=== PATIENT | female | born 1970 | race Caucasian/White ===

== ENCOUNTER 2020-09-13 21:59 | Inpatient (IN) | payer MEDICAID ==
[~2020-09-13] VITALS: Ht 160 cm; Wt 77.0 kg
[2020-09-13] MEDS ORDERED: KETOROLAC 30MG/ML VIAL IV STA (22:06)
[2020-09-13] MEDS ORDERED: ONDANSETRON HCL 4MG/2ML INJ IV STA (22:06)
[2020-09-13] MEDS ORDERED: SODIUM CHLORIDE 0.9% 1,000 ML IV ONE (22:15)
[2020-09-13 22:44] LABS: BASOPHILS % 0.5 % (0.0-2.0); EOSINOPHILS % 1.7 % (0.0-5.0); HEMATOCRIT. 37.7 % (36.0-48.0); HEMOGLOBIN. 12.5 g/dL (12.0-16.0); LYMPHOCYTES % 45.5 % (20.0-50.0); MEAN CORPUSCULAR HEMOGLOBIN 29.8 pg (28.0-32.0); MEAN CORPUSCULAR VOLUME 89.6 fL (81.0-99.0); MONOCYTES % 8.4 % (2.0-8.0); NEUTROPHILS % 43.9 % (40.0-76.0); PLATELET 245 x1000/uL (130-400)
[2020-09-13 22:49] LABS: CHLORIDE 108 mEq/L (98-107)
[2020-09-13 22:53] LABS: PROTHROMBIN TIME 10.1 sec (9.6-11.0)
[2020-09-13 22:54] LABS: HCG SCREEN NEGATIVE
[2020-09-14 05:56] LABS: CLARITY URINE CLEAR (CLEAR); COLOR URINE YELLOW (YELLOW); KETONES URINE NEGATIVE (NEGATIVE); LEUKOCYTE ESTERASE URINE NEGATIVE (NEGATIVE); NITRITE URINE NEGATIVE (NEGATIVE); OCCULT BLOOD URINE TRACE (NEGATIVE); PH URINE 8.5 (4.5-8.0); PROTEIN URINE NEGATIVE (NEGATIVE); SPECIFIC GRAVITY URINE 1.015 (1.005-1.030)
[2020-09-14 06:00] VITALS: BP 141/71
[2020-09-14] MEDS ORDERED: ACETAMINOPHEN 325MG TABLET PO PRN (06:30)
[2020-09-14] MEDS ORDERED: ONDANSETRON HCL 4MG/2ML INJ IV PRN (06:30)
[2020-09-14] MEDS ORDERED: KETOROLAC 15MG/ML VIAL IV PRN (06:30)
[2020-09-14] MEDS ORDERED: CLONIDINE 0.1MG TABLET PO PRN (06:30)
[2020-09-14] MEDS ORDERED: PANTOPRAZOLE SODIUM 40 MG/VIAL IV SCH (06:30)
[2020-09-14] MEDS ORDERED: ENOXAPARIN 40MG/0.4ML SYR SUBCUT SCH (08:00)
[2020-09-14] MEDS ORDERED: DOCUSATE SODIUM 100MG CAPSULE PO PRN (09:00)
[2020-09-14] MEDS ORDERED: MAGNESIUM/ALUMINUM HYDROXIDE/SIMETHICONE 30ML UDC PO PRN (09:00)
[2020-09-14] MEDS ORDERED: DEXT 5%/0.45% NACL KCL 10MEQ/L 1,000 ML IV SCH (09:00)
[2020-09-14 13:10] VITALS: BP 112/70
== END 2020-09-14 13:50 | disposition home or self-care (01) | DRG 137 ==
LOC: ER 21:59 → EDBEDREQ 09-14 03:44 → ENRESERV 09-14 04:47 → 6EST 09-14 06:05 → MICUSO 09-14 08:17 → 7EST 09-14 09:50 → MICUSO 09-14 13:29
PROVIDERS: ADMIT Hospitalist; ATTEND Hospitalist
DX: U07.1 COVID-19 (principal); E87.6 Hypokalemia; R74.01 Elevation of levels of liver transaminase levels; K80.00 Calculus of gallbladder with acute cholecystitis without obstruction
CPT/HCPCS: 36415; 71045; 76705; 80053; 81003; 83880; 84484; 84703; 85025; 93005; 99285; C9113; J1885; J2405; J7030; U0003